=== PATIENT | female | born 1970 | race Caucasian/White ===

== ENCOUNTER 2017-08-15 23:06 | Emergency (ER) | payer OTHER ==
[2017-08-15 23:59] VITALS: BP 118/73; PULSE 81; TEMP 98; BMI 26.9
--- NOTE | 2017-08-16 00:33 | PDOC ---
History of Present Illness <Yolanda Quinones - Last Filed: 08/16/17 00:57> - General History Source: Patient Exam Limitations: No Limitations - History of Present Illness Initial Comments: 08/16/17 02:13 Patient is a 46 year old female with no significant past medical history who presents to treat eD with complaints of rash that began last week. Patient reports having Moraina IUD placed last week and has stated that since then she has been developing a rash that began between her beasts and along her trunk that has gradually increased. Patient reports diffuse rash has increased in intensity since last week, stating it began to radiate bilaterally to her arms followed by her inner thighs, prompting her to come into the ED for further evaluation. Denies chest pain, Sob. Denies nausea, vomiting. Denies fevers, chills. Zen[place] contact with sick individuals, out of state travelling. Denies any other symptoms. Allergies: None Social history: No smoking. No alcohol. No illicit drugs. Surgical history: None PMD: None <Addy Richard - Last Filed: 08/16/17 02:14> - General Chief Complaint: Rash Stated Complaint: RASH Time Seen by Provider: 08/16/17 00:14 Past History - Suicide/Smoking/Psychosocial Hx Smoking History: Never smoked Have you smoked in the past 12 months: No Information on smoking cessation initiated: No Hx Alcohol Use: No Drug/Substance Use Hx: No <Yolanda Quinones - Last Filed: 08/16/17 00:57> <Addy Richard - Last Filed: 08/16/17 02:14> - Past Medical History Allergies/Adverse Reactions: Allergies Allergy/AdvReac Type Severity Reaction Status Date / Time No Known Allergies Allergy Verified 08/16/17 00:39 Review of Systems - Review of Systems Able to Perform ROS?: Yes Comments:: 08/16/17 02:13 GENERAL/CONSTITUTIONAL: No fever or chills. No weakness. HEAD, EYES, EARS, NOSE AND THROAT: No change in vision. No ear pain or discharge. No sore throat. CARDIOVASCULAR: No chest pain or shortness of breath. RESPIRATORY: No cough, wheezing, or hemoptysis. GASTROINTESTINAL: No nausea, vomiting, diarrhea or constipation. GENITOURINARY: No dysuria, frequency, or change in urination. MUSCULOSKELETAL: No joint or muscle swelling or pain. No neck or back pain. SKIN: +Body rash NEUROLOGIC: No headache, vertigo, loss of consciousness, or change in strength/ sensation. ENDOCRINE: No increased thirst. No abnormal weight change. HEMATOLOGIC/LYMPHATIC: No anemia, easy bleeding, or history of blood clots. ALLERGIC/IMMUNOLOGIC: No hives or skin allergy. <Addy Richard - Last Filed: 08/16/17 02:14> *Physical Exam - Vital Signs Last Vital Signs Temp Pulse Resp BP Pulse Ox 98.0 F 81 19 118/73 100 08/15/17 23:50 08/15/17 23:50 08/15/17 23:50 08/15/17 23:50 08/15/17 23:50 <Yolanda Quinones - Last Filed: 08/16/17 00:57> - Vital Signs Last Vital Signs Temp Pulse Resp BP Pulse Ox 98.0 F 81 19 118/73 100 08/15/17 23:50 08/15/17 23:50 08/15/17 23:50 08/15/17 23:50 08/15/17 23:50 - Physical Exam Comments: 08/16/17 02:14 GENERAL: Awake, alert, and fully oriented, in no acute distress HEAD: No signs of trauma EYES: PERRLA, EOMI, sclera anicteric, conjunctiva clear ENT: Auricles normal inspection, hearing grossly normal, nares patent, oropharynx clear without exudates. Moist mucosa NECK: Normal ROM, supple, no lymphadenopathy, JVD, or masses LUNGS: Breath sounds equal, clear to auscultation bilaterally. No wheezes, and no crackles HEART: Regular rate and rhythm, normal S1 and S2, no murmurs, rubs or gallops ABDOMEN: Soft, nontender, normoactive bowel sounds. No guarding, no rebound. No masses EXTREMITIES: Normal range of motion, no edema. No clubbing or cyanosis. No cords, erythema, or tenderness NEUROLOGICAL: Cranial nerves II through XII grossly intact. Normal speech, normal gait SKIN: +Pityriasis rosea Warm, Dry, normal turgor, or lesions noted. <Addy Richard - Last Filed: 08/16/17 02:14> ED Treatment Course - Medications Given in the ED: ED Medications Discontinued Medications Generic Name Dose Route Start Last Admin Trade Name Franco PRN Reason Stop Dose Admin Dexamethasone Sodium Phosphate 10 mg 08/16/17 00:35 08/16/17 00:56 Decadron Injection - IM 08/16/17 00:36 10 mg ONCE ONE Administration Diphenhydramine HCl 50 mg 08/16/17 00:34 08/16/17 00:56 Benadryl Injection - IM 08/16/17 00:35 50 mg ONCE ONE Administration <Addy Richard - Last Filed: 08/16/17 02:14> *DC/Admit/Observation/Transfer - Discharge Dispostion Admit: No <Yolanda Quinones - Last Filed: 08/16/17 00:57> - Attestations Scribe Attestion: 08/16/17 02:14 Documentation prepared by Addy Richard, acting as medical oncologist for Yolanda Quinones MD/DO. <Addy Richard - Last Filed: 08/16/17 02:14> Diagnosis at time of Disposition: Pityriasis rosea - Discharge Dispostion Disposition: HOME Condition at time of disposition: Improved - Prescriptions Prescriptions: Hydrocortisone Valerate [Westcort 0.2% Cream -] 1 applic TP BID #30 g - Patient Instructions Printed Discharge Instructions: Pityriasis Rosea
[2017-08-16] MEDS ORDERED: DEXAMETHASONE SOD PHOSPHATE 10 MG/1 ML VIAL IM ONE (00:35)
[2017-08-16] MEDS ORDERED: DEXAMETHASONE SOD PHOSPHATE 10 MG/1 ML VIAL ONE (00:47)
== END 2017-08-16 01:01 | disposition home or self-care (01) ==
LOC: JER 23:06
PROC: 3E0233Z Introduction of Anti-inflammatory into Muscle, Percutaneous Approach (ICD-10-PCS; principal; 2017-08-15)
PROC: 3E023GC Introduction of Other Therapeutic Substance into Muscle, Percutaneous Approach (ICD-10-PCS; 2017-08-15)
DX: L42 Pityriasis rosea (principal)
CPT/HCPCS: 99281-25; J1100